=== PATIENT | female | born 1945 | race Caucasian/White ===

== ENCOUNTER 2021-11-21 18:57 | Observation (INO) ==
[2021-11-21 20:13] LABS: Basophils % 0.3 % (0.0-0.8); Eosinophils % 0.3 % (0.00-10.9); Hematocrit 40.2 VOL% (35.7-47.0); Hemoglobin 13.7 GM/DL (12.0-16.0); Immature Granulocytes % 0.3 %; Immature Granulocytes Absolute 0.01 #; Lymphocytes # 0.8 10*3/uL (1.4-4.0); Lymphocytes % 26.5 % (21.3-54.2); Mean Corpuscular HGB Conc 34.1 GM/DL (32-36); Mean Corpuscular Volume 89.5 FL (87-102); Mean Platelet Volume 10.2 FL (9.6-12.0); Monocytes # 0.5 10*3/uL (0.11-0.8); Monocytes % 14.9 % (1.7-12.7); Neutrophils % 57.7 % (38.7-73.9); Platelet Count 150 T/CUMM (130-400); Red Blood Count 4.49 MC/CUMM (3.8-5.5); Red Cell Distribution Width 13.3 % (9.3-17.3)
[2021-11-21 20:32] LABS: PT Patient Result 11.2 SECS (10.5-12.0); Partial Thromboplastin Time 26.5 SECS (23.7-32.9)
[2021-11-21 20:35] LABS: Osmolality,Calculated 279.4 MOS/KG (273-304); Potassium 3.5 MMOL/L (3.5-5.1)
[2021-11-21] MEDS ORDERED: SODIUM CHLORIDE 0.9% 1,000 ML IV STA (20:43)
[2021-11-21] MEDS ORDERED: ASPIRIN EC 325 MG TABLET PO STA (21:31)
[2021-11-21] MEDS ORDERED: ATORVASTATIN 40 MG TABLET PO STA (21:32)
[2021-11-21] MEDS ORDERED: guaiFENesin/DM ER 600-30 MG TABLET PO PRN (21:46)
[2021-11-21] MEDS ORDERED: ONDANSETRON 4 MG/2 ML VIAL IV PRN (21:46)
[2021-11-21] MEDS ORDERED: diphenhydrAMINE CAP 25 MG CAPSULE PO PRN (21:46)
[2021-11-21] MEDS ORDERED: ZALEPLON 5 MG CAPSULE PO PRN (21:46)
[2021-11-21] MEDS ORDERED: DEXTROSE 10% 250 ML BAG IV PRN (21:46)
[2021-11-21] MEDS ORDERED: ACETAMINOPHEN 325 MG TABLET PO PRN (21:46)
[2021-11-21] MEDS ORDERED: hydrALAZINE 20 MG/1 ML VIAL IV PRN (21:46)
[2021-11-21] MEDS ORDERED: GLUCAGON 1 MG VIAL IM PRN (21:46)
[2021-11-21] MEDS ORDERED: NICOTINE 21 MG/24 HR PATCH TRANSDERM PRN (21:46)
[2021-11-21 21:59] LABS: Mucus,Urine Occasional /LPF (Occasional)
[2021-11-21 22:00] LABS: Bilirubin,Urine Negative (Negative); Blood, Urine Trace mg/dL (Negative); Glucose,Urine (UA) Negative (Negative); Ketones,Urine >=160 mg/dL (Negative); Nitrite,Urine Negative (Negative); Protein,Urine Negative (Negative); Urine Appearance Clear (Clear); Urine Color Yellow (Yellow); Urine Urobilinogen 0.2 eU/dL (<2.0); Urine pH 6.5 (4.5-8.0)
[2021-11-21] MEDS: SODIUM CHLORIDE 0.9% 1,000 ML IV SCH (23:02)
[2021-11-22 04:27] LABS: Basophils % 0.5 % (0.0-0.8); Eosinophils % 0.5 % (0.00-10.9); Hematocrit 37.4 VOL% (35.7-47.0); Hemoglobin 12.8 GM/DL (12.0-16.0); Immature Granulocytes % 0.3 %; Immature Granulocytes Absolute 0.01 #; Lymphocytes # 0.8 10*3/uL (1.4-4.0); Lymphocytes % 21.2 % (21.3-54.2); Mean Corpuscular HGB Conc 34.2 GM/DL (32-36); Mean Corpuscular Volume 90.3 FL (87-102); Mean Platelet Volume 10.1 FL (9.6-12.0); Monocytes # 0.5 10*3/uL (0.11-0.8); Monocytes % 14.5 % (1.7-12.7); Platelet Count 145 T/CUMM (130-400); Red Blood Count 4.14 MC/CUMM (3.8-5.5); Red Cell Distribution Width 13.4 % (9.3-17.3); White Blood Count 3.7 T/CUMM (4-12)
[2021-11-22 05:00] LABS: Calcium 8.4 MG/DL (8.5-10.1); Osmolality,Calculated 275.5 MOS/KG (273-304); Potassium 3.4 MMOL/L (3.5-5.1); Risk Ratio 2.04; VLDL Cholesterol 11.8 MG/DL
[2021-11-22] MEDS ORDERED: ASPIRIN EC 325 MG TABLET PO SCH (09:00)
[2021-11-22] MEDS: METOPROLOL SUCCINATE XL 25 MG TABLET PO SCH (12:31)
[2021-11-22] MEDS: CHOLECALCIFEROL 1,000 UNIT TABLET PO SCH (12:32)
[2021-11-22] MEDS: OMEGA 3 ACID ETHYL ESTERS 1 GM CAPSULE PO SCH (12:32)
[2021-11-22] MEDS: ASCORBIC ACID 500 MG TABLET PO SCH (12:32)
[2021-11-22] MEDS: PANTOPRAZOLE 40 MG TABLET PO SCH (12:32)
[2021-11-22] MEDS: VITAMIN E 400 UNIT CAPSULE PO SCH (12:32)
[2021-11-22] MEDS: ESCITALOPRAM 10 MG TABLET PO SCH (12:33)
[2021-11-22] MEDS: HEPARIN 5,000 UNIT/1 ML VIAL SUBCUT SCH ×2 (12:35→20:57)
[2021-11-22] MEDS: SODIUM CHLORIDE 0.9% 1,000 ML IV SCH (12:37)
[2021-11-22] MEDS: MEMANTINE 5 MG TABLET PO SCH (20:57)
[2021-11-22] MEDS ORDERED: ATORVASTATIN 40 MG TABLET PO SCH (21:00)
[2021-11-23] MEDS: SODIUM CHLORIDE 0.9% 1,000 ML IV SCH (02:00)
[2021-11-23] MEDS ORDERED: CLOPIDOGREL 75 MG TABLET PO SCH (09:00)
[2021-11-23] MEDS: ESCITALOPRAM 10 MG TABLET PO SCH (09:29)
[2021-11-23] MEDS: METOPROLOL SUCCINATE XL 25 MG TABLET PO SCH (09:48)
[2021-11-23] MEDS: HEPARIN 5,000 UNIT/1 ML VIAL SUBCUT SCH (09:56)
[2021-11-23] MEDS: VITAMIN E 400 UNIT CAPSULE PO SCH (09:57)
[2021-11-23] MEDS: OMEGA 3 ACID ETHYL ESTERS 1 GM CAPSULE PO SCH (09:57)
[2021-11-23] MEDS: ASCORBIC ACID 500 MG TABLET PO SCH (09:57)
[2021-11-23] MEDS: PANTOPRAZOLE 40 MG TABLET PO SCH (09:57)
[2021-11-23] MEDS: MEMANTINE 5 MG TABLET PO SCH (09:58)
[2021-11-23] MEDS: CHOLECALCIFEROL 1,000 UNIT TABLET PO SCH (09:58)
[2021-11-23 12:15] VITALS: BP 129/60
== END 2021-11-23 15:57 | disposition home health service (06) ==
LOC: N.ED 18:57 → N.TELEN 18:57
PROVIDERS: ADMIT Internal Medicine Geriatric Medicine; ATTEND Internal Medicine Geriatric Medicine